=== PATIENT | female | born 1950 | race Caucasian/White ===

== ENCOUNTER 2017-09-24 17:59 | Inpatient (IN) ==
[2017-09-24] MEDS ORDERED: Naloxone 0.4 MG/ML INJ IVP PRN (22:28)
[2017-09-24] MEDS ORDERED: Dextrose Gel 15 GM/37.5 ML TUBE PO PRN ×2 (22:30)
[2017-09-24] MEDS ORDERED: *HR* Dextrose 50 % in Water (Syg) 50 ML SYRINGE IVP PRN (22:30)
[2017-09-24] MEDS ORDERED: D5% in Water 1,000 ML IVC PRN (22:30)
--- NOTE | 2017-09-24 22:54 | Internal Med History&Physical ---
Date of Encounter: 09/25/17 Time of Encounter: 22:48 Assessment and Plan (1) Altered mental state Current visit: Yes Status: Acute 1 Patient is confused at baseline, recently been treated for UTI, has been hallucinating , had a fall on 09/21/[address] completed, continue to be lethargic , today hypoxic with spo2 40% - Unsure if this related to infectious process, hypoxia of head injury. No CT of head report/ documented from [facility] Will obtain STAT CT of head with no contrast STAT ABG STAT CXR Tox screen negative STAT blood culture 91% on [address] on NRB Ammonia level, check LFT continuos cardiac monitoring STAT EKG trend troponin NPO for now aspiration precautions check lactate Qualifiers: Altered mental status type: somnolence Qualified Code(s): R40.0 - Somnolence (2) UTI (urinary tract infection) Current visit: Yes Status: Acute was treated previously as outpatient with Keflex, having hallucinations lethargic, UA positive UTI - blood culture obtain Rocephin IV pending culture sensitivity . Qualifiers: Urinary tract infection type: site unspecified Hematuria presence: without hematuria Qualified Code(s): N39.0 - Urinary tract infection, site not specified (3) Diabetes mellitus Current visit: Yes Status: Chronic Accucheck every 6 hours while NPO SSI as needed Resume oral medication at discharge Qualifiers: Diabetes mellitus type: type 2 Diabetes mellitus complication status: without complication Diabetes mellitus jail insulin use: with customer success associate use Qualified Code(s): E11.9 - Type 2 diabetes mellitus without complications ; Z79.4 - assessment coordinator (current) use of insulin; Z79.4 - assessment coordinator (current) use of insulin; Z79.4 - correction (current) use of insulin; Z79.4 - assessment coordinator ( current) use of insulin (4) COPD (chronic obstructive pulmonary disease) Current visit: No Status: Chronic Patient has hx of COPD, resp failure in past with trach- SHe is hypoxic upon presentation- Obtain STAT ABG and CXR awaiting results continue with O2 titrating to maintain SpO2 > 92% Bronchodilators Qualifiers: COPD type: unspecified COPD Qualified Code(s): J44.9 - Chronic obstructive pulmonary disease, unspecified (5) CAD (coronary artery disease) Current visit: No Status: Chronic HX of CAD with stent last stent 3 yrs ago- continue ASA statin BB once able to take oral continue cardiac monitoring Qualifiers: Coronary Disease-Associated Artery/Lesion type: [place] artery [place] vs. transplanted heart: [place] heart Associated angina: without angina Qualified Code(s): I25.10 - Atherosclerotic heart disease of [place] coronary artery without angina pectoris (6) HTN (hypertension) Current visit: No Status: Chronic Hold oral medication for now NPO- hydralazine as needed for systolic > 180 Qualifiers: Hypertension type: essential hypertension Qualified Code(s): I10 - Essential (primary) hypertension (7) CHF (congestive heart failure) Current visit: Yes Status: Acute Appears to be fluid overloaded, hypoxic, rales, lower extremity edema, BNP 2464 - we will give lasix 40mg IVP now and daily cardiac monitoring I/O daily weights- davidson cathter Qualifiers: Congestive heart failure type: unspecified congestive heart failure type Congestive heart failure chronicity: acute Qualified Code(s): I50.9 - Heart failure, unspecified (8) BALJINDER (acute kidney injury) Current visit: Yes Status: Acute Creatinine 1.48 unsure of baseline- patient appears to be fluid overloaded, we will give lasix and monitor creatinine closely I/O daily weights avoid nephrotoxins (9) DVT prophylaxis Current visit: Yes Status: Acute heparin subcutaneous Internal Medicine - H&P: HPI Chief complaint: AMS Admitted From: Hospital to Hospital Transfer Plans for Post Hospital Care: Home History of present illness: Ms. Huerta is a 66 year old female pmh of DM COPD CAD stent x2 last stent 3 yrs ago. Information obtained from who is at bedside and nursing staff dt patient altered mental state . Patient has been in and out the hospital since March of this year. According to patient went into resp distress and was sent to [place] was eventually trach and peg. She was at [facility] and developed an abcess from Peg tube site. She eventually was weaned off trach and sent to [facility] for Rehab. She apparently was doing well, however was being treated for UTI with Keflex. [facility] [facility] staff did speak to [facility] who reports that patient is confused at Baseline and that approx three days ago she began to hallucinate and fell out of bed hitting head. No CT was done at that time and she did not go to hospital for evaluation at that time. Over the next few days she has been increasing more lethargic. Today F staff noted that patient's Spo2 was in the 40, placed on O2 increased to 80%. She was transported to [facility] in [place]. Labwork did reveal elevated BNP BALJINDER tox screen negative. There was CT abd and CXR ordered however there is no report to review. Patient was transferred to this facility per family request. Patient was seen immediately upon arrival. She was lethargic arousing only to painful stimuli. I did notify Dr Ventura of patient condition, who immediately was at patient's bedside. STAT CT of head, LABS EKG ABG ordered Past Med Surg Social Fam HX - Past Medical History Medical history: diabetes, hypertension Psychiatric history: no psych history - Past Surgical History Surgical History: angioplasty/stent - Social History Smoking Status: Former smoker Alcohol use: none - Family History Father Living Status: Hx Family Cardiac Disorders: Yes Mother Living Status: Hx Family Cardiac Disorders: Yes Hx Family Endocrine Disorder: Yes Internal Medicine - H&P: Meds Amoxicillin/Clavulanate 1 tab PO BID 09/24/17 [History] Aspirin 81 mg PO DAILY 09/24/17 [History] Atenolol 25 mg PO Q12HR 09/24/17 [History] Atorvastatin 40 mg PO DAILY 09/24/17 [History] Clonazepam 0.5 mg PO Q4HR PRN 09/24/17 [History] Colace 100 mg PO DAILY PRN 09/24/17 [History] Glucagon Emergency Kit 1 mg IM ONCE PRN 09/24/17 [History] Insulin Human Regular 0 unit SQ ACHS 09/24/17 [History] Lasix 20 mg PO DAILY 09/24/17 [History] Meclizine HCl 25 mg PO TID PRN 09/24/17 [History] Metformin HCl 500 mg PO TID 09/24/17 [History] Norvasc 5 mg PO DAILY 09/24/17 [History] Nystatin POWDER 1 applic TP BID 09/24/17 [History] Olanzapine 2.5 mg PO DAILY 09/24/17 [History] Omeprazole 20 mg PO DAILY 09/24/17 [History] Polyethylene Glycol 3350 17 g PO DAILY PRN 09/24/17 [History] Thera M Plus 1 tab PO DAILY 09/24/17 [History] Tylenol 325 mg PO Q4HR PRN 09/24/17 [History] 3 Allergy/AdvReac Type Severity Reaction Status Date / Time Penicillins Allergy Rash Verified 09/24/17 20:08 ROS unobtainable: due to mental status All Systems PM: A 10-system review of systems was performed and is negative for pertinent findings except as documented above in the HPI. - Constitutional Vitals: Temp Pulse Resp BP Pulse Ox 98.5 F 82 12 134/81 91 09/24/17 19:53 09/24/17 19:53 09/24/17 19:53 09/24/17 19:53 09/24/17 19:53 General appearance: Present: A&O X 0 Exam: lethargic - Head Head exam: Present: atraumatic, normocephalic - Eye Eye exam: Present: PERRL, conjuntiva pink, sclera anicteric Pupils: Present: PERRL - Neck Neck exam general surgery: Present: supple, trachea midline. Absent: lymphadenopathy - Respiratory Respiratory exam: Present: rales. Absent: accessory muscle use, rhonchi, wheezes - Cardiovascular Cardiovascular exam: Present: RRR, +S1, +S2. Absent: diastolic murmur, gallop, rubs, systolic murmur - GI/Abdominal GI/Abdominal exam: Present: normal bowel sounds, soft, no peritoneal signs. Absent: distended, tenderness - Extremities Exam Extremities exam: Present: pedal edema, warm, radial pulses palpable and symmetrical. Absent: calf tenderness, cyanotic - Neurological Exam Neurological exam: Present: altered. Absent: pronater drift, facial droop, speech deficit - Expanded Neurological Exam Coma Scale Eye Opening: To Pain Coma Scale Motor Response: Localizes to Pain Coma Scale Verbal Response: Inappropriate Coma Scale Total: 10 - Skin Skin exam: Present: dry, intact Internal Med - H&P Results - Labs Labs: labwork per [facility] CBC WBC 11.2 Hgb 11.8 Hct 36.7 platlets 268 Chem7 sodium 143 potassium 4.4 cl 104 C02 38 BUN 15 creatinine 1.48 GFR 34 BNP 2464 trop .01 Tox screen negative - EKG Data EKG shows normal: sinus rhythm - EKG Data Prior EKG available for review: no
[2017-09-24] MEDS ORDERED: Furosemide 40 MG/4 ML VIAL IVP ONE (23:06)
[2017-09-24 23:57] LABS: INR 1.1; Prothrombin Time 11.6 Seconds (9.4-12.1)
[2017-09-25] LABS: Activated Partial Thrombo Time 27.1 Seconds (26.0-36.0)
[2017-09-25 00:06] LABS: Albumin 3.3 g/dL (3.5-5.7); Bilirubin,Direct 0.1 mg/dL (0.0-0.2); Bilirubin,Indirect 0.2 mg/dL (0.0-1.2); Bilirubin,Total 0.3 mg/dL (0.3-1.0); Globulin 3.4 g/dL (2.4-3.5); Total Protein 6.7 g/dL (6.4-8.9)
[2017-09-25] MEDS: Insulin LISPRO 300 UNITS/3 ML VIAL SQ SCH ×6 (00:30→22:50)
[2017-09-25] MEDS ORDERED: *HR* Heparin 5,000 UNIT/ML VIAL SQ SCH (06:00)
[2017-09-25 06:49] LABS: Nucleated Red Blood Cells 0.2 /100 WBC (0); Red Cell Distribution Width 16.2 % (11.5-14.5)
[2017-09-25 06:51] LABS: Hematocrit 36.8 % (35.3-44.9); Hemoglobin 10.7 g/dL (11.5-15.4); Mean Corpuscular HGB Conc 29.1 g/dL (31.6-35.5); Mean Corpuscular Hemoglobin 25.2 pg (28.0-33.3); Mean Corpuscular Volume 86.8 fL (83.0-100.0); Mean Platelet Volume 10.4 fL (9.4-12.4); Platelet Count 197 K/mcL (140-400); Red Blood Count 4.24 M/mcL (3.82-4.97)
[2017-09-25 07:15] LABS: BUN/Creatinine Ratio 12 (6-26); Blood Urea Nitrogen 12 mg/dL (8-23); Calcium 9.1 mg/dL (8.6-10.3); Carbon Dioxide 37 mEq/L (23-29); Chloride 103 mEq/L (98-107); Glucose 109 mg/dL (70-105); Magnesium 1.7 mg/dL (1.6-2.6); Osmolality,Calculated 298 (280-300); Potassium 4.8 mEq/L (3.5-5.1); Sodium 144 mEq/L (136-145); eGFR For African Americans > 60 (> 60); eGFR For Non-African Americans 55 (> 60)
[2017-09-25 08:01] LABS: Eosinophils # 0.2 K/mcL (0.0-0.6); Hypochromasia Present (Not Present); Lymphocytes # 0.9 K/mcL (0.6-4.6); Monocytes # 1.1 K/mcL (0.0-1.3); Neutrophils # 9.1 K/mcL (1.6-8.9); Platelet Estimate Normal (Normal); Polychromasia 1+ (Not Present)
[2017-09-25] MEDS ORDERED: Furosemide 40 MG/4 ML VIAL IVP SCH (09:00)
[2017-09-25] MEDS ORDERED: cefTRIAXone 1,000 MG in Water for inj. (sterile) 10 ML IVP SCH (09:00)
[2017-09-25 09:44] LABS: ABG Base Excess 11 mEq/L (-2 to 3); ABG HCO3 42 mEq/L (21-27); ABG Oxygen Saturation 91 % (95-98); ABG PCO2 102 mmHg (35-45); ABG PH 7.23 pH Units (7.32-7.45); ABG PO2 80 mmHg (85-104); ABG TCO2 46 mEq/L (20-26)
--- NOTE | 2017-09-25 10:17 | Internal Med Progress Note ---
<TonyAdi - Last Filed: 09/25/17 10:09> Date of Encounter: 09/25/17 Time of Encounter: 08:45 - Assessment and plan (1) Metabolic encephalopathy Current Visit: Yes Status: Acute Assessment and plan: Primarily from respiratory failure with respiratory acidosis, hypercapnia, and hypoxia Transitioned from nasal cannula to BiPAP Plan to transfer to , as patient's condition is precipitous We will repeat ABG at 2 pm Ordered echo Ordered urine tox screen (2) Acute on chronic respiratory failure with hypoxia and hypercapnia Current Visit: Yes Status: Acute Assessment and plan: See plan of care above Has history of respiratory failure requiring trach in the past (3) Respiratory acidosis Current Visit: Yes Status: Acute Assessment and plan: pH 7.23 Started BiPAP Will recheck ABG at 2 pm (4) Diabetes mellitus Current Visit: Yes Status: Chronic Assessment and plan: Controlled. Continue low dose sliding scale insulin. Qualifiers: Diabetes mellitus type: type 2 Diabetes mellitus complication status: without complication Diabetes mellitus long term care administrator insulin use: with long term care administrator use Qualified Code(s): E11.9 - Type 2 diabetes mellitus without complications ; Z79.4 - terminal press operator (current) use of insulin; Z79.4 - skilled nursing (current) use of insulin; Z79.4 - skilled nursing (current) use of insulin; Z79.4 - skilled nursing ( current) use of insulin (5) COPD (chronic obstructive pulmonary disease) Current Visit: No Status: Chronic Assessment and plan: See plan of care above. Qualifiers: COPD type: unspecified COPD Qualified Code(s): J44.9 - Chronic obstructive pulmonary disease, unspecified (6) CAD (coronary artery disease) Current Visit: No Status: Chronic Assessment and plan: Continue ASA, statin, and beta dipika Qualifiers: Coronary Disease-Associated Artery/Lesion type: [place] artery [place] vs. transplanted heart: [place] heart Associated angina: without angina Qualified Code(s): I25.10 - Atherosclerotic heart disease of [place] coronary artery without angina pectoris (7) HTN (hypertension) Current Visit: No Status: Chronic Assessment and plan: Holding oral medications while NPO Hydralazine for systolic >180 Qualifiers: Hypertension type: essential hypertension Qualified Code(s): I10 - Essential (primary) hypertension (8) UTI (urinary tract infection) Current Visit: Yes Status: Acute Assessment and plan: Treating with Rocephin IV Qualifiers: Urinary tract infection type: site unspecified Hematuria presence: without hematuria Qualified Code(s): N39.0 - Urinary tract infection, site not specified (9) CHF (congestive heart failure) Current Visit: Yes Status: Acute Assessment and plan: Last echo in november Ordered echo lasix 40 mg daily I/Os w/ davidson Qualifiers: Congestive heart failure type: unspecified congestive heart failure type Congestive heart failure chronicity: acute Qualified Code(s): I50.9 - Heart failure, unspecified (10) BALJINDER (acute kidney injury) Current Visit: Yes Status: Acute Assessment and plan: Cr 1.01 Continue to monitor (11) DVT prophylaxis Current Visit: Yes Status: Acute Assessment and plan: Heparin subq - Subjective Interval history: Patient continues to be obtunded. Is arousable with considerable effort, able to speak a word or two. - Constitutional Vitals: Temp Pulse Resp BP Pulse Ox 97.2 F L 69 18 138/72 99 09/25/17 07:17 09/25/17 07:17 09/25/17 07:17 09/25/17 07:17 09/25/17 08:40 General appearance: Present: A&O X 0, obese - Head Head exam: Present: atraumatic, normal inspection, normocephalic - ENT ENT exam: Present: mucous membranes moist - Neck Neck exam general surgery: Present: trachea midline - Respiratory Respiratory exam: Present: decreased breath sounds, rales. Absent: accessory muscle use, respiratory distress, tachypnea - Cardiovascular Cardiovascular exam: Present: RRR, +S1, +S2 - GI/Abdominal GI/Abdominal exam: Present: soft, no peritoneal signs. Absent: tenderness - Neurological Exam Neurological exam: Present: altered. Absent: alert, oriented X3 - Psychiatric Psychiatric exam: Absent: agitated - Skin Skin exam: Present: dry, warm Internal Medicine: Result - Labs CBC & Chem 7: 09/25/17 06:35 09/25/17 06:35 Labs: Short CBC 09/25/17 Range/Units 06:35 WBC 11.4 H (4.3-11.1) K/mcL Hgb 10.7 L (11.5-15.4) g/dL Hct 36.8 (35.3-44.9) % Plt Count 197 (140-400) K/mcL Neutrophils # 9.1 H (1.6-8.9) K/mcL BMP 09/25/17 06:35 Sodium 144 Potassium 4.8 Chloride 103 Carbon Dioxide 37 H BUN 12 Creatinine 1.01 Glucose 109 H Calcium 9.1 Cardiac Enzymes 09/24/17 09/25/17 Range/Units 23:27 06:35 Troponin I 0.05 H* 0.04 H* (< 0.04) ng/mL Liver Function 09/24/17 Range/Units 23:27 Total Bilirubin 0.3 (0.3-1.0) mg/dL Direct Bilirubin 0.1 (0.0-0.2) mg/dL AST 12 L (13-39) Units/L ALT 5 L (7-52) Units/L Alkaline Phosphatase 84 (34-104) Units/L Albumin 3.3 L (3.5-5.7) g/dL - ABG Interpretation ABG results: ABG ABG pH 7.23 pH Units (7.32-7.45) L 09/25/17 09:35 ABG pCO2 102 mmHg (35-45) H* 09/25/17 09:35 ABG pO2 80 mmHg (85-104) L 09/25/17 09:35 ABG O2 Saturation 91 % (95-98) L 09/25/17 09:35 PT/INR, D-dimer PT 11.6 Seconds (9.4-12.1) 09/24/17 23:29 - Impressions Impressions Head CT 09/24/17 22:31 IMPRESSION: No acute intracranial abnormality or mass. D/ / Wilver Aguirre / Wilver Aguirre Interpreting Provider: Wilver Aguirre Chest X-Ray 09/25/17 22:33 IMPRESSION: Fluctuating basilar opacities consistent with atelectasis. Question background mild interstitial edema. D/ / Wilver Aguirre / Wilver Aguirre Interpreting Provider: Wilver Aguirre Consult Discharge Plan - Plan Referrals: NONE,PCP [Primary Care Provider] - (Patien is from [facility] ) <Jose Chua T - Last Filed: 09/25/17 11:52> Date of Encounter: 09/25/17 - Constitutional Vitals: Temp Pulse Resp BP Pulse Ox 97.5 F L 51 14 122/68 98 09/25/17 10:40 09/25/17 10:40 09/25/17 10:40 09/25/17 10:40 09/25/17 10:40 Internal Medicine: Result - Labs CBC & Chem 7: 09/25/17 06:35 09/25/17 06:35 Labs: Short CBC 09/25/17 Range/Units 06:35 WBC 11.4 H (4.3-11.1) K/mcL Hgb 10.7 L (11.5-15.4) g/dL Hct 36.8 (35.3-44.9) % Plt Count 197 (140-400) K/mcL Neutrophils # 9.1 H (1.6-8.9) K/mcL BMP 09/25/17 06:35 Sodium 144 Potassium 4.8 Chloride 103 Carbon Dioxide 37 H BUN 12 Creatinine 1.01 Glucose 109 H Calcium 9.1 Cardiac Enzymes 09/24/17 09/25/17 Range/Units 23:27 06:35 Troponin I 0.05 H* 0.04 H* (< 0.04) ng/mL Liver Function 09/24/17 Range/Units 23:27 Total Bilirubin 0.3 (0.3-1.0) mg/dL Direct Bilirubin 0.1 (0.0-0.2) mg/dL AST 12 L (13-39) Units/L ALT 5 L (7-52) Units/L Alkaline Phosphatase 84 (34-104) Units/L Albumin 3.3 L (3.5-5.7) g/dL - ABG Interpretation ABG results: ABG ABG pH 7.23 pH Units (7.32-7.45) L 09/25/17 09:35 ABG pCO2 102 mmHg (35-45) H* 09/25/17 09:35 ABG pO2 80 mmHg (85-104) L 09/25/17 09:35 ABG O2 Saturation 91 % (95-98) L 09/25/17 09:35 PT/INR, D-dimer PT 11.6 Seconds (9.4-12.1) 09/24/17 23:29 - Impressions Impressions Head CT 09/24/17 22:31 IMPRESSION: No acute intracranial abnormality or mass. D/ / Wilver Aguirre / Wilver Aguirre Interpreting Provider: Wilver Aguirre Chest X-Ray 09/25/17 22:33 IMPRESSION: Fluctuating basilar opacities consistent with atelectasis. Question background mild interstitial edema. D/ / Wilver Aguirre / Wilver Aguirre Interpreting Provider: Wilver Aguirre - Attending Attestation I have independently seen this patient on 09/25/17, I have examined this patient and reviewed electronic medical record. Plan of care has been discussed with the resident physician, and the patient's spouse at the bedside at time of review. 66-year-old female resident of [facility] facility who was transferred from an outside hospital for management of acute encephalopathy. Patient has baseline is felt to be mostly continuous but conversational. She has a medical history of respiratory failure requiring trach and PEG at outside hospital, which have been reversed. She also has diabetes mellitus, COPD, andtreated for urinary tract infection at outside facility prior to transfer. Review of systems is not able to be obtained as patient is nonverbal and confused. Physical examination: Vital signs are stable. Slightly hypothermic. Nonverbal. Dry oral episode.All extremities. Chest examination is limited as patient continues assessment acne. Abdomen is soft and nontender. PEG scar noted.. Urinary Catheter draining clear urine. Chronic venostasis changes on both lower extremities. Labs and imaging reviewed. Mild leukocytosis, chronic stable anemia, coagulation panel is normal. Arterial blood gas done this morning reveals respiratory acidosis with hypercapnia and hypoxia. Chemistry reveals metabolic alkalosis. No BALJINDER. Slightly elevated troponins. Head CT shows no acute intracranial abnormality or mass, chest x-ray shows mild interstitial edema. Assessment #1 acute metabolic encephalopathy, multifactorial, secondary to acute on chronic hypoxic and hypercapnic respiratory failure, possibly secondary to urinary tract infection. For precautions. High risk patient. #2 acute on chronic hypoxic and hypercapnic respiratory failure. Respiratory acidosis and hypercapnia. Place patient on BiPAP. Repeat arterial blood gas. Patient is full cor. High risk for intubation and invasive mechanical ventilation. Transfer to [facility]. keep Patient nothing by mouth. #3 suspected CHF exacerbation. Obtain echocardiogram. Continue Lasix daily. Strict intake and output, and daily weight. #4 suspected urinary tract infection. Obtain blood and urine cultures, continue Rocephin, and follow final culture reports. Rest of details is as in the resident physician's documentation which I have reviewed.
[2017-09-25] MEDS ORDERED: Naloxone 0.4 MG/ML INJ IVP PRN (11:58)
[2017-09-25] MEDS ORDERED: Dextrose Gel 15 GM/37.5 ML TUBE PO PRN ×2 (11:58)
[2017-09-25] MEDS ORDERED: D5% in Water 1,000 ML IVC PRN (11:58)
[2017-09-25] MEDS ORDERED: *HR* Dextrose 50 % in Water (Syg) 50 ML SYRINGE IVP PRN (11:58)
[2017-09-25 14:48] LABS: ABG Base Excess 12 mEq/L (-2 to 3); ABG HCO3 42 mEq/L (21-27); ABG Oxygen Saturation 96 % (95-98); ABG PCO2 84 mmHg (35-45); ABG PO2 95 mmHg (85-104); ABG TCO2 44 mEq/L (20-26); Blood Gas Modality BiLevel
[2017-09-25 18:22] LABS: ABG Base Excess 12 mEq/L (-2 to 3); ABG HCO3 43 mEq/L (21-27); ABG Oxygen Saturation 96 % (95-98); ABG PCO2 98 mmHg (35-45); ABG PH 7.25 pH Units (7.32-7.45); ABG PO2 104 mmHg (85-104); ABG TCO2 46 mEq/L (20-26); Blood Gas Modality BiLevel; Blood Gas Respiration Rate 14
[2017-09-25] MEDS: *HR* Heparin 5,000 UNIT/ML VIAL SQ SCH (18:22)
[2017-09-25] MEDS: clonazePAM 0.5 MG TABLET PO SCH (20:01)
[2017-09-26 01:43] LABS: ABG Base Excess 11 mEq/L (-2 to 3); ABG HCO3 41 mEq/L (21-27); ABG Oxygen Saturation 98 % (95-98); ABG PCO2 85 mmHg (35-45); ABG PH 7.29 pH Units (7.32-7.45); ABG PO2 114 mmHg (85-104); ABG TCO2 44 mEq/L (20-26)
[2017-09-26] MEDS: Insulin LISPRO 300 UNITS/3 ML VIAL SQ SCH ×4 (06:07→20:47)
[2017-09-26] MEDS: *HR* Heparin 5,000 UNIT/ML VIAL SQ SCH ×2 (06:07→18:56)
[2017-09-26 07:18] LABS: Hematocrit 37.3 % (35.3-44.9); Hemoglobin 10.9 g/dL (11.5-15.4); Mean Corpuscular HGB Conc 29.2 g/dL (31.6-35.5); Mean Corpuscular Hemoglobin 25.2 pg (28.0-33.3); Mean Corpuscular Volume 86.1 fL (83.0-100.0); Mean Platelet Volume 10.9 fL (9.4-12.4); Platelet Count 169 K/mcL (140-400); Red Blood Count 4.33 M/mcL (3.82-4.97); Red Cell Distribution Width 16.2 % (11.5-14.5)
[2017-09-26 07:32] LABS: Chloride 102 mEq/L (98-107); Sodium 143 mEq/L (136-145)
[2017-09-26] MEDS: clonazePAM 0.5 MG TABLET PO SCH (08:11)
[2017-09-26 08:53] LABS: ABG Base Excess 11 mEq/L (-2 to 3); ABG HCO3 41 mEq/L (21-27); ABG Oxygen Saturation 98 % (95-98); ABG PCO2 83 mmHg (35-45); ABG PO2 113 mmHg (85-104); ABG TCO2 44 mEq/L (20-26)
[2017-09-26] MEDS ORDERED: cefTRIAXone 1,000 MG in Water for inj. (sterile) 10 ML IVP SCH (09:00)
[2017-09-26] MEDS ORDERED: Furosemide 40 MG/4 ML VIAL IVP SCH (09:00)
--- NOTE | 2017-09-26 09:44 | Internal Med Progress Note ---
<TonyAdi - Last Filed: 09/26/17 12:44> Date of Encounter: 09/26/17 Time of Encounter: 09:15 - Assessment and plan (1) Metabolic encephalopathy Current Visit: Yes Status: Acute Assessment and plan: Primarily from respiratory failure with respiratory acidosis, hypercapnia, and hypoxia Transitioned from nasal cannula to BiPAP Patient clinically improved, now conversant, though she is still confused pH stable around 7.30, pCO2 remains around 84 Ordered echo Ordered urine tox screen (2) Acute on chronic respiratory failure with hypoxia and hypercapnia Current Visit: Yes Status: Acute Assessment and plan: See plan of care above Has history of respiratory failure requiring trach in the past verbalized that, if intubation becomes necessary, that patient would want everything done, up to and including tracheostomy (3) Respiratory acidosis Current Visit: Yes Status: Acute Assessment and plan: pH 7.30 On BiPAP (4) Diabetes mellitus Current Visit: Yes Status: Chronic Assessment and plan: Continue low dose sliding scale insulin. Qualifiers: Diabetes mellitus type: type 2 Diabetes mellitus complication status: without complication Diabetes mellitus retirement insulin use: with oil heaterman use Qualified Code(s): E11.9 - Type 2 diabetes mellitus without complications ; Z79.4 - director long term care (current) use of insulin; Z79.4 - custodial (current) use of insulin; Z79.4 - director long term care (current) use of insulin; Z79.4 - director long term care ( current) use of insulin (5) COPD (chronic obstructive pulmonary disease) Current Visit: No Status: Chronic Assessment and plan: Considering slow recovery, we are going to start treating as exacerbation Started levofloxacin 500 mg x 5 days Started prednisone 40 mg Qualifiers: COPD type: unspecified COPD Qualified Code(s): J44.9 - Chronic obstructive pulmonary disease, unspecified (6) CAD (coronary artery disease) Current Visit: No Status: Chronic Assessment and plan: Restarted home medications: ASA, statin, and beta dipika Qualifiers: Coronary Disease-Associated Artery/Lesion type: [place] artery [place] vs. transplanted heart: [place] heart Associated angina: without angina Qualified Code(s): I25.10 - Atherosclerotic heart disease of [place] coronary artery without angina pectoris (7) HTN (hypertension) Current Visit: No Status: Chronic Assessment and plan: Restarted home medications Hydralazine for systolic >180 Qualifiers: Hypertension type: essential hypertension Qualified Code(s): I10 - Essential (primary) hypertension (8) UTI (urinary tract infection) Current Visit: Yes Status: Acute Assessment and plan: Treating with Rocephin IV Qualifiers: Urinary tract infection type: site unspecified Hematuria presence: without hematuria Qualified Code(s): N39.0 - Urinary tract infection, site not specified (9) CHF (congestive heart failure) Current Visit: Yes Status: Acute Assessment and plan: Last echo in november Ordered echo She has started to develop a contraction alkalosis switching lasix from 40 mg iv to 20 mg po, her home dose Started Acetazolamide q8 hr x 6 I/Os w/ davidson 3 L out yesterday Qualifiers: Congestive heart failure type: unspecified congestive heart failure type Congestive heart failure chronicity: acute Qualified Code(s): I50.9 - Heart failure, unspecified (10) BALJINDER (acute kidney injury) Current Visit: Yes Status: Acute Assessment and plan: Continue to monitor (11) DVT prophylaxis Current Visit: Yes Status: Acute Assessment and plan: Heparin subq - Subjective Interval history: Patient's mentation has improved and is able to answer some questions and speak to her . Her says this is much improved from her initial presentation, but not at her baseline as of yet. - Constitutional Vitals: Temp Pulse Resp BP Pulse Ox 97.8 F 83 15 151/69 100 09/26/17 07:14 09/26/17 07:14 09/26/17 07:14 09/26/17 07:14 09/26/17 07:14 General appearance: Present: A&O X 1, obese - Head Head exam: Present: atraumatic, normal inspection, normocephalic - Neck Neck exam general surgery: Present: trachea midline - Respiratory Respiratory exam: Present: decreased breath sounds. Absent: accessory muscle use, respiratory distress - Cardiovascular Cardiovascular exam: Present: RRR, +S1, +S2 - GI/Abdominal GI/Abdominal exam: Present: soft, no peritoneal signs. Absent: tenderness - Neurological Exam Neurological exam: Present: no focal deficits - Skin Skin exam: Present: dry, warm Internal Medicine: Result - Labs CBC & Chem 7: 09/26/17 06:11 09/26/17 09:30 Labs: Short CBC 09/26/17 Range/Units 06:11 WBC 10.6 (4.3-11.1) K/mcL Hgb 10.9 L (11.5-15.4) g/dL Hct 37.3 (35.3-44.9) % Plt Count 169 (140-400) K/mcL BMP 09/26/17 06:11 Sodium 143 Potassium 5.0 Chloride 102 Carbon Dioxide TNP BUN TNP Creatinine TNP Glucose TNP Calcium TNP Cardiac Enzymes 09/25/17 Range/Units 12:49 Troponin I 0.04 H* (< 0.04) ng/mL - ABG Interpretation ABG results: ABG ABG pH 7.30 pH Units (7.32-7.45) L 09/26/17 08:48 ABG pCO2 83 mmHg (35-45) H* 09/26/17 08:48 ABG pO2 113 mmHg (85-104) H 09/26/17 08:48 ABG O2 Saturation 98 % (95-98) 09/26/17 08:48 PT/INR, D-dimer PT 11.6 Seconds (9.4-12.1) 09/24/17 23:29 Consult Discharge Plan - Plan Referrals: NONE,PCP [Primary Care Provider] - (Mirza is from [facility] ) <Jose Chua T - Last Filed: 09/26/17 14:36> Date of Encounter: 09/26/17 - Constitutional Vitals: Temp Pulse Resp BP Pulse Ox 97.8 F 87 16 153/77 92 09/26/17 11:45 09/26/17 11:45 09/26/17 11:45 09/26/17 11:45 09/26/17 11:45 Internal Medicine: Result - Labs CBC & Chem 7: 09/26/17 06:11 09/26/17 09:30 Labs: Short CBC 09/26/17 Range/Units 06:11 WBC 10.6 (4.3-11.1) K/mcL Hgb 10.9 L (11.5-15.4) g/dL Hct 37.3 (35.3-44.9) % Plt Count 169 (140-400) K/mcL BMP 09/26/17 09/26/17 06:11 09:30 Sodium 143 Potassium 5.0 Chloride 102 Carbon Dioxide TNP 41 H* BUN TNP 15 Creatinine TNP 1.19 Glucose TNP 100 Calcium TNP 9.5 Cardiac Enzymes 09/25/17 Range/Units 12:49 Troponin I 0.04 H* (< 0.04) ng/mL - ABG Interpretation ABG results: ABG ABG pH 7.30 pH Units (7.32-7.45) L 09/26/17 08:48 ABG pCO2 83 mmHg (35-45) H* 09/26/17 08:48 ABG pO2 113 mmHg (85-104) H 09/26/17 08:48 ABG O2 Saturation 98 % (95-98) 09/26/17 08:48 PT/INR, D-dimer PT 11.6 Seconds (9.4-12.1) 09/24/17 23:29 - Impressions Impressions Echocardiogram 09/25/17 10:46 Impressions: LVEF 65%. Mild left ventricular diastolic dysfunction. RV is not well visualized. Mild tricuspid regurgitation. History of bioprosthetic aortic valve - which is not well visualized. No Doppler evidence for stenosis or regurgitation. No pulmonary hypertension. Left Ventricular Wall Motion: Rest Echo Findings The mid inferior lateral and basal inferior lateral jewell were not visualized. All other wall segments showed normal motion. Findings: Study Quality * Technically sub-optimal due to poor echocardiographic windows. ECG Findings * Normal sinus rhythm. Left Ventricle * Poor PLAX measurements due to image quality - unable to measure LV wall thickness. * Normal appearing LV size. * Mild left ventricular diastolic dysfunction. * LVEF 65%. Right Ventricle * RV is not well visualized. Left Atrium * Normal left atrial size. Right Atrium * Right atrium is not well visualized. Aortic Valve * No aortic regurgitation. * Biologic aortic valve not well visualized. * No Doppler evidence for aortic stenosis. Mitral Valve * No mitral regurgitation. * No mitral stenosis. * Normal mitral valve structure. * Mild mitral annular calcification Tricuspid Valve * Tricuspid valve not well visualized. * Mild tricuspid regurgitation. Pulmonic Valve * Pulmonic valve is not well visualized. Pulmonary Artery * Pulmonary artery not well visualized. Interatrial Septum * Interatrial septum not well evaluated. - Attending Attestation I have independently seen this patient on 09/01/17, I have examined this patient and reviewed electronic medical record. Plan of care has been discussed with the resident physician, and the patient's spouse at the bedside at time of review. 66-year-old female resident of [facility] who was transferred from an outside hospital for management of acute encephalopathy. She has a medical history of respiratory failure requiring trach and PEG at outside hospital, which have been reversed. She also has diabetes mellitus, COPD, and treated for urinary tract infection at outside facility prior to transfer. Work up here revealed acute on chronic hypoxic and hypercapneic resp failure, acute on chronic CHF exacerbation She has been slowly improving on BIPAP She is seen at bedside Conversant, but still confused, oriented to person only, asking for a meal Physical examination: Vital signs are stable. Slightly hypothermic. Dry oral mucosa. Chest examination is limited to anterior auscultation as patient is unco-operative with sitting up, chest is clear anteriorly. Tracheostomy site is clean. Abdomen is soft and non-tender. PEG scar noted.. Urinary Catheter draining clear urine. Chronic venostasis changes on both lower extremities with 1+ piting edema. . Labs and imaging reviewed. Mild leukocytosis has resolved, chronic stable anemia, coagulation panel is normal. Arterial blood gas done this morning reveals some improvement, worsening metabolic alkalosis. Assessment #1 acute metabolic encephalopathy, multifactorial, secondary to acute on chronic hypoxic and hypercapnic respiratory failure, possibly secondary to urinary tract infection. Patient is improving. Fall risk. Speech eval for feeding recommendations. Patient is awake and oriented to person only this morning #2 acute on chronic hypoxic and hypercapnic respiratory failure. Improving on BIAPAP. Respiratory acidosis and hypercapnia is improving. Continue BIPAP. Needs BIPAP at SNF upon discharge. Full code. #3 COPDE: Start on Prednisone 40mg po and Levaquin for 5 days only. Duonebs q4h prn. #4 CHF exacerbation. ECHO shows preserved EF. Mild LVDD. Negative fluid balance of -3L. Add acetazolamide for 6 doses. Continue IV Lasix daily. Strict intake and output, and daily weight. #5 suspected urinary tract infection. blood culture prelim negative, discontinue Rocephin as patient will be placed on levaquin po for COPD, and follow final urine and blood culture reports. #DM: Continue sliding scale. monitor FS ACHS Rest of details is as in the resident physician's documentation which I have reviewed.
[2017-09-26 10:06] LABS: BUN/Creatinine Ratio 13 (6-26); Blood Urea Nitrogen 15 mg/dL (8-23); Calcium 9.5 mg/dL (8.6-10.3); Carbon Dioxide 41 mEq/L (23-29); Glucose 100 mg/dL (70-105); eGFR For African Americans 55 (> 60); eGFR For Non-African Americans 45 (> 60)
[2017-09-26] MEDS ORDERED: Acetaminophen 325 MG TABLET PO PRN (11:20)
[2017-09-26] MEDS ORDERED: levoFLOXacin 500 MG TABLET PO ONE (11:30)
[2017-09-26] MEDS ORDERED: acetaZOLAMIDE 250 MG TABLET PO SCH (11:30)
[2017-09-26] MEDS: predniSONE 20 MG TABLET PO SCH (12:08)
[2017-09-26] MEDS: Haloperidol Lactate 5 MG/ML VIAL IVP PRN (13:29)
[2017-09-26] MEDS: OLANZapine 5 MG TAB.RAPDIS PO SCH (14:25)
[2017-09-26] MEDS: *HR* LORazepam 2 MG/ML VIAL IVP SCH ×2 (14:27→20:47)
[2017-09-26] MEDS ORDERED: *HR* Metformin 500 MG TABLET PO SCH (15:00)
--- NOTE | 2017-09-26 19:33 | Electrocardiograph Report ---
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
--- NOTE | 2017-09-26 19:33 | Electrocardiograph Report ---
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
[2017-09-27] MEDS: Haloperidol Lactate 5 MG/ML VIAL IVP PRN ×2 (00:40→10:15)
[2017-09-27 04:51] LABS: VBG HCO3 41 mEq/L (21-27); VBG PCO2 85 mmHg (41-51); VBG PH 7.29 pH Units (7.32-7.42); VBG PO2 140 mmHg (25-50)
[2017-09-27 04:52] LABS: Hematocrit 33.6 % (35.3-44.9); Hemoglobin 9.8 g/dL (11.5-15.4); Mean Corpuscular HGB Conc 29.2 g/dL (31.6-35.5); Mean Corpuscular Hemoglobin 25.3 pg (28.0-33.3); Mean Corpuscular Volume 86.8 fL (83.0-100.0); Mean Platelet Volume 10.5 fL (9.4-12.4); Platelet Count 201 K/mcL (140-400); Red Blood Count 3.87 M/mcL (3.82-4.97); Red Cell Distribution Width 16.2 % (11.5-14.5)
[2017-09-27 05:05] LABS: Calcium 9.7 mg/dL (8.6-10.3); Potassium 3.9 mEq/L (3.5-5.1)
[2017-09-27] MEDS: *HR* Heparin 5,000 UNIT/ML VIAL SQ SCH ×2 (06:31→16:49)
[2017-09-27] MEDS: Furosemide 20 MG TABLET PO SCH (08:04)
[2017-09-27] MEDS: predniSONE 20 MG TABLET PO SCH (08:04)
[2017-09-27] MEDS: amLODIPine 5 MG TABLET PO SCH (08:05)
[2017-09-27] MEDS: OLANZapine 5 MG TAB.RAPDIS PO SCH (08:05)
[2017-09-27] MEDS: *HR* LORazepam 2 MG/ML VIAL IVP SCH ×2 (08:05→21:25)
[2017-09-27] MEDS: Aspirin Enteric Coated 81 MG Tablet PO SCH (08:05)
[2017-09-27] MEDS: Insulin LISPRO 300 UNITS/3 ML VIAL SQ SCH ×4 (08:06→21:15)
[2017-09-27] MEDS ORDERED: OLANZapine 5 MG TAB.RAPDIS PO SCH (09:00)
[2017-09-27] MEDS ORDERED: levoFLOXacin 500 MG TABLET PO SCH (09:00)
--- NOTE | 2017-09-27 12:48 | Internal Med Progress Note ---
<Adi Jimenez - Last Filed: 09/27/17 12:38> Date of Encounter: 09/27/17 Time of Encounter: 10:00 - Assessment and plan (1) Metabolic encephalopathy Current Visit: Yes Status: Acute Assessment and plan: Primarily from respiratory failure with respiratory acidosis, hypercapnia, and hypoxia. Transitioned from nasal cannula to BiPAP. Patient clinically improved, now conversant, though she is still confused and agitated. Patient may be at baseline dementia per . Anticipate discharge on BiPAP. (2) Acute on chronic respiratory failure with hypoxia and hypercapnia Current Visit: Yes Status: Acute Assessment and plan: See plan of care above Has history of respiratory failure requiring trach in the past verbalized that, if intubation becomes necessary, that patient would want everything done, up to and including tracheostomy (3) Respiratory acidosis Current Visit: Yes Status: Acute Assessment and plan: Continue BiPAP. Patient will likely require BiPAP after discharge. (4) Diabetes mellitus Current Visit: Yes Status: Chronic Assessment and plan: Continue low dose sliding scale insulin. Qualifiers: Diabetes mellitus type: type 2 Diabetes mellitus complication status: without complication Diabetes mellitus intermodal dispatcher insulin use: with intermodal dispatcher use Qualified Code(s): E11.9 - Type 2 diabetes mellitus without complications ; Z79.4 - termite exterminator helper (current) use of insulin; Z79.4 - termite exterminator helper (current) use of insulin; Z79.4 - [facility] (current) use of insulin; Z79.4 - termite exterminator helper ( current) use of insulin (5) COPD (chronic obstructive pulmonary disease) Current Visit: Yes Status: Chronic Assessment and plan: Continue levofloxacin and prednisone x5 days Qualifiers: COPD type: unspecified COPD Qualified Code(s): J44.9 - Chronic obstructive pulmonary disease, unspecified (6) CAD (coronary artery disease) Current Visit: Yes Status: Chronic Assessment and plan: Continue ASA, statin, and beta dipika Qualifiers: Coronary Disease-Associated Artery/Lesion type: [place] artery [place] vs. transplanted heart: [place] heart Associated angina: without angina Qualified Code(s): I25.10 - Atherosclerotic heart disease of [place] coronary artery without angina pectoris (7) HTN (hypertension) Current Visit: Yes Status: Chronic Assessment and plan: Controlled Restarted home medications Hydralazine for systolic >180 Qualifiers: Hypertension type: essential hypertension Qualified Code(s): I10 - Essential (primary) hypertension (8) UTI (urinary tract infection) Current Visit: Yes Status: Acute Assessment and plan: Treating with Rocephin IV Qualifiers: Urinary tract infection type: site unspecified Hematuria presence: without hematuria Qualified Code(s): N39.0 - Urinary tract infection, site not specified (9) CHF (congestive heart failure) Current Visit: Yes Status: Acute Assessment and plan: Continue oral lasix at home dose. Continue acetazolamide for total of 6 doses. I/Os Qualifiers: Congestive heart failure type: unspecified congestive heart failure type Congestive heart failure chronicity: acute Qualified Code(s): I50.9 - Heart failure, unspecified (10) DVT prophylaxis Current Visit: Yes Status: Acute Assessment and plan: Heparin subq - Subjective Interval history: Patient is less somnolent but confused and agitated at wearing the BiPAP. She has removed the BiPAP several times despite restraints and is requiring sedation at times. Per her , this is the patient's baseline. - Constitutional Vitals: Temp Pulse Resp BP Pulse Ox 96.6 F L 53 20 112/59 98 09/27/17 11:22 09/27/17 11:22 09/27/17 11:22 09/27/17 11:22 09/27/17 11:22 General appearance: Present: A&O X 1, obese - Head Head exam: Present: atraumatic, normal inspection, normocephalic - ENT ENT exam: Present: mucous membranes dry - Neck Neck exam general surgery: Present: trachea midline - Respiratory Respiratory exam: Present: decreased breath sounds. Absent: accessory muscle use, respiratory distress - Cardiovascular Cardiovascular exam: Present: RRR, +S1, +S2, systolic murmur - GI/Abdominal GI/Abdominal exam: Present: soft, no peritoneal signs. Absent: tenderness - Psychiatric Psychiatric exam: Present: agitated - Skin Skin exam: Present: dry, warm Internal Medicine: Result - Labs CBC & Chem 7: 09/27/17 04:15 09/27/17 04:15 Labs: Short CBC 09/27/17 Range/Units 04:15 WBC 8.7 (4.3-11.1) K/mcL Hgb 9.8 L (11.5-15.4) g/dL Hct 33.6 L (35.3-44.9) % Plt Count 201 (140-400) K/mcL [facility] 09/27/17 04:15 Sodium 142 Potassium 3.9 Chloride 97 L Carbon Dioxide 41 H* BUN 20 Creatinine 1.34 H Glucose 148 H Calcium 9.7 - ABG Interpretation ABG results: ABG ABG pH 7.30 pH Units (7.32-7.45) L 09/26/17 08:48 ABG pCO2 83 mmHg (35-45) H* 09/26/17 08:48 ABG pO2 113 mmHg (85-104) H 09/26/17 08:48 ABG O2 Saturation 98 % (95-98) 09/26/17 08:48 PT/INR, D-dimer PT 11.6 Seconds (9.4-12.1) 09/24/17 23:29 Consult Discharge Plan - Plan Referrals: NONE,PCP [Primary Care Provider] - (Mirza is from [facility] ) <Jose Chua - Last Filed: 09/27/17 16:17> Date of Encounter: 09/27/17 - Constitutional Vitals: Temp Pulse Resp BP Pulse Ox 96.8 F L 55 20 122/65 98 09/27/17 15:48 09/27/17 15:48 09/27/17 15:48 09/27/17 15:48 09/27/17 15:48 Internal Medicine: Result - Labs CBC & Chem 7: 09/27/17 04:15 09/27/17 04:15 Labs: Short CBC 09/27/17 Range/Units 04:15 WBC 8.7 (4.3-11.1) K/mcL Hgb 9.8 L (11.5-15.4) g/dL Hct 33.6 L (35.3-44.9) % Plt Count 201 (140-400) K/mcL [facility] 09/27/17 04:15 Sodium 142 Potassium 3.9 Chloride 97 L Carbon Dioxide 41 H* BUN 20 Creatinine 1.34 H Glucose 148 H Calcium 9.7 - ABG Interpretation ABG results: ABG ABG pH 7.30 pH Units (7.32-7.45) L 09/26/17 08:48 ABG pCO2 83 mmHg (35-45) H* 09/26/17 08:48 ABG pO2 113 mmHg (85-104) H 09/26/17 08:48 ABG O2 Saturation 98 % (95-98) 09/26/17 08:48 PT/INR, D-dimer PT 11.6 Seconds (9.4-12.1) 09/24/17 23:29 - Attending Attestation I have independently seen this patient on 09/01/17, I have examined this patient and reviewed electronic medical record. Plan of care has been discussed with the resident physician, and the patient's spouse at the bedside at time of review. 66-[facility] who [facility] an outside hospital for management of acute encephalopathy. She has a medical history of respiratory failure requiring trach and PEG at outside hospital, which have been reversed. She also has diabetes mellitus, COPD, and treated for urinary tract infection at outside facility prior to transfer. Work up here revealed acute on chronic hypoxic and hypercapneic resp failure, acute on chronic CHF exacerbation She has been slowly improving on BIPAP She is seen at bedside Conversant, but still confused, oriented to person only Physical examination: Vital signs are stable. Slightly hypothermic. Dry oral mucosa. Chest examination is limited to anterior auscultation as patient is unco-operative with sitting up, chest is clear anteriorly. Tracheostomy site is clean. Abdomen is soft and non-tender. PEG scar noted.. Urinary Catheter draining clear urine. Chronic venostasis changes on both lower extremities with 1+ piting edema. . Labs and imaging reviewed. chronic stable anemia, coagulation panel is normal. VBG noted, stable hyercapnea Metabolic alkalosis Assessment #1 acute metabolic encephalopathy, multifactorial, secondary to acute on chronic hypoxic and hypercapnic respiratory failure, possibly secondary to urinary tract infection. Patient is improving. Fall risk. Speech eval recommendations noted. Patient is awake and oriented to person only, fall precautions, continue current care #2 acute on chronic hypoxic and hypercapnic respiratory failure. Improving on BIAPAP. Respiratory acidosis and hypercapnia is improving. Continue BIPAP. Needs BIPAP at SNF upon discharge. Full code. #3 COPDE:Continue Prednisone 40mg po and Levaquin for 5 days only. Duonebs q4h prn. #4 CHF exacerbation. ECHO shows preserved EF. Mild LVDD. Negative fluid balance of -4.3L. continue lasix po and acetazolamide. Strict intake and output , and daily weight. #5 suspected urinary tract infection. blood culture prelim negative, discontinue Rocephin as patient will be placed on levaquin po for COPD, and follow final urine and blood culture reports. #DM: Continue sliding scale. monitor FS ACHS Rest of details is as in the resident physician's documentation which I have reviewed.
[2017-09-28 00:26] LABS: ABG Base Excess 11 mEq/L (-2 to 3); ABG HCO3 38 mEq/L (21-27); ABG Oxygen Saturation 99 % (95-98); ABG PCO2 68 mmHg (35-45); ABG PH 7.36 pH Units (7.32-7.45); ABG PO2 138 mmHg (85-104); ABG TCO2 40 mEq/L (20-26); Blood Gas Modality BiLevel; Blood Gas PEEP 6 cm H2O; Blood Gas VT 500 cc
[2017-09-28 05:03] LABS: Red Cell Distribution Width 16.1 % (11.5-14.5)
[2017-09-28 05:05] LABS: Hematocrit 34.6 % (35.3-44.9); Hemoglobin 9.7 g/dL (11.5-15.4); Mean Corpuscular Hemoglobin 24.3 pg (28.0-33.3); Mean Corpuscular Volume 86.7 fL (83.0-100.0); Mean Platelet Volume 9.9 fL (9.4-12.4); Platelet Count 187 K/mcL (140-400); Red Blood Count 3.99 M/mcL (3.82-4.97)
[2017-09-28 05:21] LABS: Calcium 9.8 mg/dL (8.6-10.3); Potassium 3.5 mEq/L (3.5-5.1)
[2017-09-28] MEDS: *HR* Heparin 5,000 UNIT/ML VIAL SQ SCH ×2 (06:36→16:17)
[2017-09-28] MEDS: *HR* LORazepam 2 MG/ML VIAL IVP SCH ×2 (07:48→20:19)
[2017-09-28] MEDS: Aspirin Enteric Coated 81 MG Tablet PO SCH (07:49)
[2017-09-28] MEDS: predniSONE 20 MG TABLET PO SCH (07:49)
[2017-09-28] MEDS: Furosemide 20 MG TABLET PO SCH (07:49)
[2017-09-28] MEDS: amLODIPine 5 MG TABLET PO SCH (07:49)
[2017-09-28] MEDS: OLANZapine 5 MG TAB.RAPDIS PO SCH (07:50)
[2017-09-28] MEDS: Insulin LISPRO 300 UNITS/3 ML VIAL SQ SCH ×4 (08:00→20:20)
[2017-09-28] MEDS ORDERED: levoFLOXacin 250 MG TABLET PO SCH (09:00)
--- NOTE | 2017-09-28 11:16 | Internal Med Progress Note ---
<Braden Peterson - Last Filed: 09/28/17 11:12> Date of Encounter: 09/28/17 Time of Encounter: 11:13 - Assessment and plan (1) Metabolic encephalopathy Current Visit: Yes Status: Acute Assessment and plan: Primarily from respiratory failure with respiratory acidosis, hypercapnia, and hypoxia. She is alert to self but not to place or time or situation. She is able to eat without assistance. According to patient's this is her baseline. continue patient on BiPAP at night and nasal cannula in the morning. Patient is being set up for BiPAP qualification tonight. Discontinue restraints. Barriers to discharge: Patient was on restraints will not be accepted by ECF until restraints are discontinued for 24 hours. (2) Acute on chronic respiratory failure with hypoxia and hypercapnia Current Visit: Yes Status: Acute Assessment and plan: Secondary to hypercapnic respiratory failure with hypoxia. Patient will need BiPAP outpatient. Will set up for overnight BiPAP qualification study. (3) CAD (coronary artery disease) Current Visit: Yes Status: Chronic Assessment and plan: Continue ASA, statin, and beta dipika Qualifiers: Coronary Disease-Associated Artery/Lesion type: [place] artery [place] vs. transplanted heart: [place] heart Associated angina: without angina Qualified Code(s): I25.10 - Atherosclerotic heart disease of [place] coronary artery without angina pectoris (4) CHF (congestive heart failure) Current Visit: Yes Status: Acute Assessment and plan: Continue oral lasix at home dose. Serum creatinine stable. Continue monitor. Qualifiers: Congestive heart failure type: unspecified congestive heart failure type Congestive heart failure chronicity: acute Qualified Code(s): I50.9 - Heart failure, unspecified (5) COPD (chronic obstructive pulmonary disease) Current Visit: Yes Status: Chronic Assessment and plan: In acute exacerbation. Continue levofloxacin day and prednisone day 4. Continue nebulizer treatments. Qualifiers: COPD type: unspecified COPD Qualified Code(s): J44.9 - Chronic obstructive pulmonary disease, unspecified (6) Diabetes mellitus Current Visit: Yes Status: Chronic Assessment and plan: Continue low dose sliding scale insulin. 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 plant operator (current) use of insulin; Z79.4 - [facility] (current) use of insulin; Z79.4 - petroleum terminal plant operator ( current) use of insulin (7) DVT prophylaxis Current Visit: Yes Status: Acute Assessment and plan: Heparin subq (8) HTN (hypertension) Current Visit: Yes Status: Chronic Assessment and plan: Controlled Restarted home medications Hydralazine for systolic >180 Qualifiers: Hypertension type: essential hypertension Qualified Code(s): I10 - Essential (primary) hypertension (9) Respiratory acidosis Current Visit: Yes Status: Chronic Assessment and plan: 2nd to hypercapnia in setting of COPD treatment: BIPAP, duonebs (10) UTI (urinary tract infection) Current Visit: Yes Status: Acute Assessment and plan: levaquin day 4 urine cultures show enterococcus species will await sensitivities blood cultures negative Leukocytosis resolved. Qualifiers: Urinary tract infection type: site unspecified Hematuria presence: without hematuria Qualified Code(s): N39.0 - Urinary tract infection, site not specified - Subjective Interval history: Patient awake and conversing this morning. She is alert to self but not to time or place. She is tolerating her diet. She has been compliant with BiPAP. However she was put in restraints overnight because patient was pulling off BiPAP. - Constitutional Vitals: Temp Pulse Resp BP Pulse Ox 98.0 F 62 15 148/96 100 09/28/17 08:00 09/28/17 08:00 09/28/17 08:00 09/28/17 08:00 09/28/17 08:00 General appearance: Present: A&O X 1, obese - Other Additional findings: General: without distress Heart: Regular rate and rhythm with no murmur Lungs: Clear to auscultation bilaterally Abdomen: Soft nontender, nondistended positive bowel sounds Skin: warm and dry Extremities: mild pedal edema b/l, b/l venous stasis Neuro: alert to self but not place or time or situation. Vascular: Pedal and radial pulses 2 out of 4 Internal Medicine: Result - Labs CBC & Chem 7: 09/28/17 04:40 09/28/17 04:40 Labs: Short CBC 09/28/17 Range/Units 04:40 WBC 8.5 (4.3-11.1) K/mcL Hgb 9.7 L (11.5-15.4) g/dL Hct 34.6 L (35.3-44.9) % Plt Count 187 (140-400) K/mcL BMP 09/28/17 04:40 Sodium 143 Potassium 3.5 Chloride 99 Carbon Dioxide 41 H* BUN 23 Creatinine 1.37 H Glucose 106 H Calcium 9.8 - ABG Interpretation ABG results: ABG ABG pH 7.36 pH Units (7.32-7.45) 09/28/17 00:22 ABG pCO2 68 mmHg (35-45) H 09/28/17 00:22 ABG pO2 138 mmHg (85-104) H 09/28/17 00:22 ABG O2 Saturation 99 % (95-98) H 09/28/17 00:22 PT/INR, D-dimer PT 11.6 Seconds (9.4-12.1) 09/24/17 23:29 Consult Discharge Plan - Plan Referrals: NONE,PCP [Primary Care Provider] - (Mirza is from [facility] ) <Chuck Pardo - Last Filed: 09/28/17 14:08> Date of Encounter: 09/28/17 - Constitutional Vitals: Temp Pulse Resp BP Pulse Ox 98.6 F 69 16 126/64 93 09/28/17 12:00 09/28/17 12:00 09/28/17 12:00 09/28/17 12:00 09/28/17 12:00 Internal Medicine: Result - Labs CBC & Chem 7: 09/28/17 04:40 09/28/17 04:40 Labs: Short CBC 09/28/17 Range/Units 04:40 WBC 8.5 (4.3-11.1) K/mcL Hgb 9.7 L (11.5-15.4) g/dL Hct 34.6 L (35.3-44.9) % Plt Count 187 (140-400) K/mcL BMP 09/28/17 04:40 Sodium 143 Potassium 3.5 Chloride 99 Carbon Dioxide 41 H* BUN 23 Creatinine 1.37 H Glucose 106 H Calcium 9.8 - ABG Interpretation ABG results: ABG ABG pH 7.36 pH Units (7.32-7.45) 09/28/17 00:22 ABG pCO2 68 mmHg (35-45) H 09/28/17 00:22 ABG pO2 138 mmHg (85-104) H 09/28/17 00:22 ABG O2 Saturation 99 % (95-98) H 09/28/17 00:22 PT/INR, D-dimer PT 11.6 Seconds (9.4-12.1) 09/24/17 23:29 - Attending Attestation I have Examined the patient , reviewed the Progress Note obtained and documented by the resident and I personally participated in the madrigal components. I have discussed the case and management of the patient's care. The following comments revise or confirm relevant madrigal components of their note. Patient has metabolic encephalopathy most likely secondary to acute or chronic hypoxic and hypercapneic respiratory failure-clinically improving overall. She does remain compliant with BiPAP and this was emphasized again. She was in restraints up until this morning. We will take that restraints off and monitor for 24 hours more in order to have her qualify for placement to a [facility] facility. Rest of the plan of care as in progress note documented by the resident
[2017-09-28] MEDS: Ipratropium/Albuterol Neb 3 ML IH SCH ×4 (11:31→23:56)
[2017-09-28] MEDS: Haloperidol Lactate 5 MG/ML VIAL IVP PRN (12:25)
[2017-09-29] MEDS: Ipratropium/Albuterol Neb 3 ML IH SCH ×3 (04:10→10:55)
[2017-09-29 05:02] LABS: Basophils % 0.1 %; Eosinophils % 0.3 %; Hemoglobin 9.3 g/dL (11.5-15.4)
[2017-09-29 05:03] LABS: Hematocrit 32.6 % (35.3-44.9); Immature Granulocytes % 0.6 % (0-4); Lymphocytes # 1.2 K/mcL (0.6-4.6); Lymphocytes % 17.9 %; Mean Corpuscular HGB Conc 28.5 g/dL (31.6-35.5); Mean Corpuscular Hemoglobin 24.5 pg (28.0-33.3); Mean Corpuscular Volume 85.8 fL (83.0-100.0); Mean Platelet Volume 10.5 fL (9.4-12.4); Monocytes # 0.8 K/mcL (0.0-1.3); Monocytes % 12.3 %; Neutrophils # 4.7 K/mcL (1.6-8.9); Nucleated Red Blood Cells 0.6 /100 WBC (0); Platelet Count 176 K/mcL (140-400); Segmented Neutrophils % 68.8 %
[2017-09-29 05:11] LABS: Calcium 9.6 mg/dL (8.6-10.3); Potassium 3.2 mEq/L (3.5-5.1)
[2017-09-29] MEDS: *HR* Heparin 5,000 UNIT/ML VIAL SQ SCH (05:55)
[2017-09-29 06:11] LABS: Hypochromasia Present (Not Present); Platelet Estimate Normal (Normal)
[2017-09-29 06:14] LABS: Anisocytosis 2+ (Not Present)
[2017-09-29 08:36] VITALS: BP 116/53
[2017-09-29] MEDS: *HR* LORazepam 2 MG/ML VIAL IVP SCH (08:36)
[2017-09-29] MEDS: Insulin LISPRO 300 UNITS/3 ML VIAL SQ SCH (08:37)
[2017-09-29] MEDS ORDERED: clonazePAM 0.5 MG TABLET PO PRN (09:06)
[2017-09-29] MEDS ORDERED: Linezolid 600 MG TABLET PO SCH (09:15)
[2017-09-29] MEDS: amLODIPine 5 MG TABLET PO SCH (10:17)
[2017-09-29] MEDS: predniSONE 20 MG TABLET PO SCH (10:17)
[2017-09-29] MEDS: Furosemide 20 MG TABLET PO SCH (10:17)
[2017-09-29] MEDS: OLANZapine 5 MG TAB.RAPDIS PO SCH (10:17)
[2017-09-29] MEDS: Aspirin Enteric Coated 81 MG Tablet PO SCH (10:18)
--- NOTE | 2017-09-29 10:37 | Physician Discharge Referral ---
ExtendedCare Referral Info Transfer To: SNF Provider in Charge: Rhina Chua Provider in Charge after Transfer: PCP Institutional Level of Care: Skilled - Diagnosis (1) Acute on chronic respiratory failure with hypoxia and hypercapnia Priority: Primary Status: Acute (2) Metabolic encephalopathy Priority: Primary Status: Acute (3) UTI (urinary tract infection) Priority: Primary Status: Acute (4) Diabetes mellitus Priority: Secondary Status: Chronic (5) COPD (chronic obstructive pulmonary disease) Priority: Secondary Status: Chronic (6) CAD (coronary artery disease) Priority: Secondary Status: Chronic (7) HTN (hypertension) Priority: Secondary Status: Chronic (8) CHF (congestive heart failure) Priority: Secondary Status: Acute (9) Respiratory acidosis Priority: Primary Status: Resolved Prognosis: Fair Aware of Diagnosis: Family Aware of Prognosis: Family - Transfer Medications Prescriptions: clonazePAM [Klonopin] 0.5 mg PO Q4H PRN #20 tablet PRN Reason: Anxiety Home Medications: Acetaminophen [Non-Aspirin] 325 mg PO Q4H PRN 09/24/17 [History] Aspirin [Lo-Dose Aspirin EC] 81 mg PO DAILY 09/24/17 [History] Atenolol [Tenormin] 25 mg PO Q12H 09/24/17 [History] Atorvastatin [Lipitor] 40 mg PO HS 09/24/17 [History] Docusate Sodium [Dok] 100 mg PO DAILY 09/24/17 [History] Furosemide [Lasix] 20 mg PO DAILY 09/24/17 [History] Glucagon,Human Recombinant [Glucagon Emergency Kit] 1 mg IJ ONCE PRN 09/24/17 [ History] Insulin Human Regular [HumuLIN R] 0 unit SQ TID PRN 09/24/17 [History] Meclizine HCl [Verticalm] 25 mg PO TID PRN 09/24/17 [History] Multivit/Ca/Min/Fe/FA [Thera M Plus] 1 tab PO DAILY 09/24/17 [History] Nystatin POWDER [Nystop] 1 appl TP BID 09/24/17 [History] OLANZapine [Zyprexa] 2.5 mg PO DAILY 09/24/17 [History] Omeprazole [PriLOSEC] 20 mg PO DAILY 09/24/17 [History] Polyethylene Glycol 3350 [MiraLAX Powder Bulk 17.9 Oz] 1 scoop PO DAILY PRN [History] amLODIPine [Norvasc] 5 mg PO DAILY 09/24/17 [History] metFORMIN [Glucophage] 500 mg PO TID 09/24/17 [History] Linezolid [Zyvox] 600 mg PO BID tablet 09/29/17 [Rx] clonazePAM [Klonopin] 0.5 mg PO Q4H PRN #20 tablet 09/29/17 [Rx] predniSONE [PredniSONE] 40 mg PO DAILY tablet 09/29/17 [Rx] Allergies/Adverse Reactions: 3 Allergy/AdvReac Type Severity Reaction Status Date / Time Penicillins Allergy Rash Verified 09/24/17 20:08 - Respiratory Orders Oxygen / L per min (2-3 L per minute), Other (BIPAP. RR 12-14, IPAP 14-16. FiO2 35%. EVERY NIGHT and WHEN PATIENT IS TAKING A NAP) Smoking Cessation: Smoking cessation has been advised. For more information, call the [employer] Tobacco Quit Line at 6-867-EKQA-NOW. - Advance Directives Code Status: Full Code - Mobility Orders Other (per physical therapy) - Diet Orders Cardiac (advanced soft diet chopped meat) CERTIFICATION: I certify that the transfer of the above named patient to an Extended Care Facility is necessary for the continuing treatment of the diagnosis listed. The above information is true and accurate reflection of patient's current condition. Confidential - Redisclosure prohibited without a patient's written consent.
--- NOTE | 2017-09-29 10:37 | Discharge Summary ---
Date of Encounter: 09/29/17 Time of Encounter: 09:00 - Discharge Diagnosis (1) Acute on chronic respiratory failure with hypoxia and hypercapnia Priority: Primary Status: Acute (2) UTI (urinary tract infection) Priority: Primary Status: Acute Qualifiers: Urinary tract infection type: site unspecified Hematuria presence: without hematuria Qualified Code(s): N39.0 - Urinary tract infection, site not specified (3) Diabetes mellitus Priority: Secondary Status: Chronic Qualifiers: Diabetes mellitus type: type 2 Diabetes mellitus complication status: without complication Diabetes mellitus terminal make up operator insulin use: with [facility] use Qualified Code(s): E11.9 - Type 2 diabetes mellitus without complications ; Z79.4 - [facility] (current) use of insulin; Z79.4 - medical terminologist (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 transplanted heart: [place] heart Associated angina: without angina Qualified Code(s): I25.10 - Atherosclerotic heart disease of [place] coronary artery without angina pectoris (6) HTN (hypertension) Priority: Secondary Status: Chronic Qualifiers: Hypertension type: essential hypertension Qualified Code(s): I10 - Essential (primary) hypertension (7) DVT prophylaxis Priority: Primary Status: Resolved (8) CHF (congestive heart failure) Priority: Primary Status: Chronic Qualifiers: Congestive heart failure type: unspecified congestive heart failure type Congestive heart failure chronicity: acute on chronic Qualified Code(s): I50.9 - Heart failure, unspecified (9) BALJINDER (acute kidney injury) Priority: Primary Status: Resolved (10) Metabolic encephalopathy Priority: Primary Status: Resolved (11) Respiratory acidosis Priority: Secondary Status: Chronic - Discharge Medications Prescriptions: clonazePAM [Klonopin] 0.5 mg PO Q4H PRN #20 tablet PRN Reason: Anxiety Home Medications: Acetaminophen [Non-Aspirin] 325 mg PO Q4H PRN 09/24/17 [History] Aspirin [Lo-Dose Aspirin EC] 81 mg PO DAILY 09/24/17 [History] Atenolol [Tenormin] 25 mg PO Q12H 09/24/17 [History] Atorvastatin [Lipitor] 40 mg PO HS 09/24/17 [History] Docusate Sodium [Dok] 100 mg PO DAILY 09/24/17 [History] Furosemide [Lasix] 20 mg PO DAILY 09/24/17 [History] Glucagon,Human Recombinant [Glucagon Emergency Kit] 1 mg IJ ONCE PRN 09/24/17 [ History] Insulin Human Regular [HumuLIN R] 0 unit SQ TID PRN 09/24/17 [History] Meclizine HCl [Verticalm] 25 mg PO TID PRN 09/24/17 [History] Multivit/Ca/Min/Fe/FA [Thera M Plus] 1 tab PO DAILY 09/24/17 [History] Nystatin POWDER [Nystop] 1 appl TP BID 09/24/17 [History] OLANZapine [Zyprexa] 2.5 mg PO DAILY 09/24/17 [History] Omeprazole [PriLOSEC] 20 mg PO DAILY 09/24/17 [History] Polyethylene Glycol 3350 [MiraLAX Powder Bulk 17.9 Oz] 1 scoop PO DAILY PRN [History] amLODIPine [Norvasc] 5 mg PO DAILY 09/24/17 [History] metFORMIN [Glucophage] 500 mg PO TID 09/24/17 [History] Linezolid [Zyvox] 600 mg PO BID tablet 09/29/17 [Rx] clonazePAM [Klonopin] 0.5 mg PO Q4H PRN #20 tablet 09/29/17 [Rx] predniSONE [PredniSONE] 40 mg PO DAILY tablet 09/29/17 [Rx] Allergies/Adverse Reactions: 3 Allergy/AdvReac Type Severity Reaction Status Date / Time Penicillins Allergy Rash Verified 09/24/17 20:08 Date of admission: 09/24/17 23:44 Primary care physician: PCP NONE Consults: 09/24/17 21:56 Consult to Maintenance Leader [CONS] Routine Reason for SW Consult: Family wanting to switch patient [facility] [place] [facility] 09/26/17 09:51 Consult to Speech Therapy [CONS] Routine Comment: Evaluate, develop and implement POC Reason for Consult: bedside swallow eval Call Completed: Yes 09/27/17 11:47 Consult to Maintenance Leader [CONS] Routine Reason for SW Consult: BiPAP at ECF Discharging clinician: Jose Chua Anticipated date of discharge: 09/29/17 - Patient Status Disposition: Transfer SNF Condition: Fair Functional capacity at discharge: bed bound Overall status at discharge: patient is back to baseline - Discharge Instructions Follow Up With: NONE,PCP [Primary Care Provider] - (Mirza is from [facility] ) - Diet and Activity Activity: resume usual activities as tolerated, wear oxygen at all times, other (wear BIPAP) Diet: other (soft diet, chopped meat) Interval History: See below Hospital course: Ms. Huerta is a 66-year-old female resident of snf facility who was transferred from an outside hospital for management of acute encephalopathy. She has a medical history of respiratory failure requiring trach and PEG at outside hospital, which have been reversed. She also has diabetes mellitus, COPD, and treated for urinary tract infection at outside facility prior to transfer. Work up here revealed acute on chronic hypoxic and hypercapneic resp failure, acute on chronic CHF exacerbation She has been improving on BIPAP, and qualified for same, She is seen at bedside, Conversant, but still confused, oriented to person only , this is her baseline per and SNF She also has VRE UTI and has been started on Zyvox She was also managed for CHF exacerbation, with adequate diuresis and negative fluid abalance of ~4.5 L She is stable to be discharged back to SNF with BIPAP was at the bedside throughout this encounter Due to recurrent nature of patient's resp failure and hx of Trach and PEG with possible chronic hypoxic encephalopathy since then, he is educated about patient 's code status, he states she remains full code - Time Spent with Patient Total time spent providing and/or coordinating discharge services: Greater than 30 minutes - Constitutional Vitals: Temp Pulse Resp BP Pulse Ox 97.5 F L 62 18 116/53 95 09/29/17 03:56 09/29/17 08:26 09/29/17 08:26 09/29/17 08:26 09/29/17 08:26 General: without distress Heart: Regular rate and rhythm with no murmur Lungs: Clear to auscultation bilaterally Abdomen: Soft nontender, nondistended positive bowel sounds Skin: warm and dry Extremities: mild pedal edema b/l, b/l venous stasis Neuro: alert to self but not place or time or situation. Vascular: Pedal and radial pulses 2 out of 4 General appearance: Present: A&O X 1, obese
== END 2017-09-29 12:20 | DRG 208 ==
LOC: 2ANU → SUATTDRO 23:44 → 2NNU 09-25 12:25
PROVIDERS: ADMIT Internal Medicine Nephrology; ATTEND Internal Medicine